=== PATIENT | male | born 1970 | race Caucasian/White ===

== ENCOUNTER 2016-12-09 05:52 | Emergency (ER) | payer OTHER ==
[~2016-12-09] VITALS: Ht 188 cm; Wt 122.0 kg
[~2016-12-09 05:52] MED LIST: DICL75 PO; DOXY100T PO; LORTA5 PO
[2016-12-09 05:58] VITALS: BP 135/85; PULSE 94; RESP 18; TEMP 97.5; O2SAT 95
[2016-12-09 06:06] VITALS: BP 135/85; PULSE 94; RESP 18; TEMP 97.5; O2SAT 95
[2016-12-09] MEDS ORDERED: HYDR-3366 PO (06:31)
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
== END 2016-12-09 06:41 | disposition home or self-care (01) ==
LOC: PHED 05:52
DX: M50.20 Other cervical disc displacement, unspecified cervical region (principal); K21.9 Gastro-esophageal reflux disease without esophagitis; F17.290 Nicotine dependence, other tobacco product, uncomplicated; Z79.899 Other long term (current) drug therapy
CPT/HCPCS: 99283